=== PATIENT | female | born 1980 | race Two or more races ===

== ENCOUNTER 2018-02-13 19:28 | Emergency (ER) | payer OTHER ==
[2018-02-13] MEDS ORDERED: ACETAMINOPHEN 325 MG TABLET (FP) PO ONE (19:48)
--- NOTE | 2018-02-13 19:48 | PDOC ---
Rapid Medical Evaluation Time Seen by Provider: 02/13/18 19:44 Medical Evaluation: 02/13/18 19:45 I have performed a brief in-person evaluation of this patient. The patient presents with a chief complaint of: right ankle pain s/p inversion injury. Pertinent physical exam findings: [place] ankle (-) I have ordered the following: urine The patient will proceed to the ED for further evaluation. Discharge Disposition - Diagnosis Ankle pain, right - Referrals - Patient Instructions - Post Discharge Activity
[2018-02-13 19:51] VITALS: BP 119/86; PULSE 75; TEMP 98.2; BMI 25.0
[2018-02-13] MEDS ORDERED: ACETAMINOPHEN 325 MG TABLET (FP) ONE (20:20)
--- NOTE | 2018-02-13 20:25 | PDOC ---
History of Present Illness - General Chief Complaint: Injury Stated Complaint: RT LEG INJURY Time Seen by Provider: 02/13/18 19:44 - History of Present Illness Initial Comments: 02/13/18 20:22 37-year-old female without comorbidities presents for evaluation of right ankle pain. She states she was walking down steps yesterday and twisted her ankle. She describes an inversion injury. She points to the lateral aspect of the right ankle as her area of the discomfort Past History - Past Medical History Allergies/Adverse Reactions: Allergies Allergy/AdvReac Type Severity Reaction Status Date / Time No Known Allergies Allergy Verified 02/13/18 19:51 Home Medications: Ambulatory Orders Ibuprofen 200 mg PO ASDIR 02/13/18 - Suicide/Smoking/Psychosocial Hx Smoking History: Never smoked Have you smoked in the past 12 months: No Information on smoking cessation initiated: No Hx Alcohol Use: No Drug/Substance Use Hx: No Review of Systems - Review of Systems Musculoskeletal: Yes: Joint Pain *Physical Exam - Vital Signs Last Vital Signs Temp Pulse Resp BP Pulse Ox 98.2 F 75 16 119/86 100 02/13/18 19:46 02/13/18 19:46 02/13/18 19:46 02/13/18 19:46 02/13/18 19:46 - Physical Exam Comments: 02/13/18 20:23 Right ankle skin color and temperature are normal. Range of motion is full and nonpainful. There is no pain about the knee which has full range of motion without pain proximal fibula or along its distal course no pain or tenderness about the medial lateral malleolus fifth metatarsal or navicular. There is minimal discomfort at the ATFL. No evidence of instability no gross sensorimotor deficits. She is neurovascularly intact. ED Treatment Course - ADDITIONAL ORDERS Additional order review: Laboratory Results 02/13/18 20:00 Urine HCG, Qual Negative *DC/Admit/Observation/Transfer Diagnosis at time of Disposition: Ankle pain, right, Right ankle sprain - Discharge Dispostion Disposition: HOME Condition at time of disposition: Stable Decision to Admit order: No - Referrals Referrals: Victor Manuel Cruz MD [Staff Physician] - - Patient Instructions Printed Discharge Instructions: Ankle Sprain, DI for Ankle Sprain Additional Instructions: Return to the emergency room should symptoms worsen or go unresolved. He can continue with Tylenol and Motrin for pain as directed. Keep ankle elevated. Follow-up with orthopedic surgery in 2-3 days for further evaluation and treatment options. You may weight-bear as tolerated with use of crutches and the Aircast. - Post Discharge Activity
== END 2018-02-13 20:33 | disposition home or self-care (01) ==
LOC: JERFT 19:28
DX: M25.571 Pain in right ankle and joints of right foot (principal); S93.401A Sprain of unspecified ligament of right ankle, initial encounter; X58.XXXA Exposure to other specified factors, initial encounter; Y93.89 Activity, other specified; Y92.89 Other specified places as the place of occurrence of the external cause
CPT/HCPCS: 84703; 99281-25

== ENCOUNTER 2019-12-09 17:00 | Inpatient (IN) | payer OTHER ==
[~2019-12-09 17:00] MED LIST: ceFAZolin SODIUM 1 GM VIAL IVPB ONE
[2019-12-09 18:13] VITALS: BMI 30.2
[2019-12-09 18:23] LABS: BASO % 0.5 % (0-2.0); EOS % 2.3 % (0-4.5); HEMATOCRIT 33.1 % (32.4-45.2); HEMOGLOBIN 10.8 GM/dL (10.7-15.3); LYMPH % 19.6 % (8-40); MCH 27.7 pg (25.7-33.7); MCHC 32.7 g/dl (32.0-36.0); MEAN CELL VOLUME 84.5 fl (80-96); MEAN PLT VOLUME 9.1 fl (7.5-11.1); MONO % 8.7 % (3.8-10.2); NEUT % 68.9 % (42.8-82.8); PLATELET COUNT 176 K/MM3 (134-434); RBC 3.92 M/mm3 (3.60-5.2); RDW 15.8 % (11.6-15.6); WHITE BLOOD COUNT 8.2 K/mm3 (4.0-10.0)
[2019-12-09 18:29] LABS: INR 0.97 (0.83-1.09); PROTHROMBIN TIME (PATIENT) 11.4 SEC (9.7-13.0)
[2019-12-09 18:31] LABS: ACTIVATED PTT 27.1 SECONDS (25.2-36.5)
[2019-12-09 18:45] LABS: BLOOD UREA NITROGEN 9.6 mg/dL (7-18); CALCIUM 8.2 mg/dL (8.5-10.1); CREATININE 0.6 mg/dL (0.55-1.3); POTASSIUM 3.7 mmol/L (3.5-5.1)
--- NOTE | 2019-12-09 18:58 | HP ---
Past Medical History - Primary Care Physician PCP:: Gaudencio Hansen - Admission Chief Complaint: Referred from [facility] with iow MAYA of 3.6 cm History of Present Illness: 39 yo , CHRISTIANE 12/23/19, EGA 38 weeks, was referred with oligohyramnios No bleeding or leaking fluid per vagina Right (dermoid) ovarian cyst of 10 - 12 cm is present. History Source: Patient Limitations to Obtaining History: No Limitations - Past Medical History ...: 5 ...Para: 2 ...Term: 2 ...: 0 ...Spon : 0 ...Induced : 2 ...Living Children: 2 ...Multiple Gestation: 0 ...LMP: 02/15/19 ... Weeks Gestation by Dates: 38.0 ...EDC by Dates: 12/23/19 ...EDC by Sono: 12/23/19 - Past Surgical History Past Surgical History: Yes: Hx Myomectomy: No Hx Transabdominal Cerclage: No - Smoking History Smoking history: Never smoked Have you smoked in the past 12 months: No - Alcohol/Substance Use Hx Alcohol Use: No - Social History Usual Living Arrangement: Yes: With Significant Other Do you think of yourself as: Straight/Heterosexual History of Recent Travel: No Home Medications - Allergies Allergies/Adverse Reactions: Allergies Allergy/AdvReac Type Severity Reaction Status Date / Time No Known Allergies Allergy Verified 12/09/19 17:56 - Home Medications Home Medications: Ambulatory Orders Pnv No.95/Ferrous Fum/Folic AC [ Formula] 1 each PO DAILY 12/09/19 Family Medical History Family History: Denies Review of Systems - Review of Systems Constitutional: reports: No Symptoms Eyes: reports: No Symptoms HENT: reports: No Symptoms Neck: reports: No Symptoms Cardiovascular: reports: No Symptoms Respiratory: reports: No Symptoms Gastrointestinal: reports: No Symptoms Genitourinary: reports: No Symptoms Breasts: reports: No Symptoms Reported Musculoskeletal: reports: No Symptoms Integumentary: reports: No Symptoms Neurological: reports: No Symptoms Endocrine: reports: No Symptoms Hematology/Lymphatic: reports: No Symptoms Psychiatric: reports: No Symptoms Physical Exam - Maternity Vital Signs: Vital Signs Temperature 98.3 F 12/09/19 17:59 Pulse Rate 66 12/09/19 17:59 Respiratory Rate 18 12/09/19 17:59 Blood Pressure 104/69 12/09/19 17:59 O2 Sat by Pulse Oximetry (%) 100 12/09/19 17:30 Constitutional: Yes: Well Nourished Eyes: Yes: WNL HENT: Yes: WNL Neck: Yes: WNL Cardiovascular: Yes: WNL - Abdominal Exam/OB Number of Fetuses: Single Presentation: Breech Contractions: No Monitor Mode: External Heart Rate Location: [facility] Category: I Accelerations: Uniform Decelerations: None - Vaginal Exam/OB Vaginal Bleeding: No Speculum Exam: No Dilatation (cm): 0 Effacement (%): 0 Amniotic Membrane Status: Intact Presentation: Gal[place] Breech Station: -3 - Physical Exam Musculoskeletal: Yes: WNL Extremities: Yes: WNL Edema: No ...Motor Strength: WNL Psychiatric: Yes: WNL - Labs Lab Results: CBC, BMP 12/09/19 18:00 Hemorrhage Risk Assessment - Risk Factors Medium Risk Factors: Yes: None High Risk Factors: Yes: None Risk Score: 1 Risk Level: Medium Risk Problem List - Problems (1) 38 weeks gestation of Code(s): Z3A.38 - 38 WEEKS GESTATION OF (2) Oligohydramnios in shaw in third trimester Code(s): O41.03X0 - OLIGOHYDRAMNIOS, THIRD TRIMESTER, NOT APPLICABLE OR UNSP (3) Right ovarian cyst Code(s): N83.201 - UNSPECIFIED OVARIAN CYST, RIGHT SIDE Assessment/Plan Early term gestation with severe oligohydramnios, prior delivery and right dermoid cyst Sudhakar repeat delivery and right salpingoophorectomy Patient counseled on above procedures, with complications explained to her. Continue monitoring.
[2019-12-09] MEDS ORDERED: morphine SULFATE/PF 0.5 MG/ML (2cc Syringe - QUVA) ONE (19:47)
[2019-12-09] MEDS ORDERED: OXYTOCIN 20 UNITS in 0.9% NS 20 UNIT/1,000 ML INFUS.BAG IV ONE (20:31)
[2019-12-09] MEDS: CITRIC ACID/SODIUM CITRATE 30 ML UNIT-DOSE CUP PO ONE (21:40)
[2019-12-09] MEDS ORDERED: ePHEDrine SULFATE 50 MG/1 ML AMPULE ONE (22:38)
[2019-12-09] MEDS ORDERED: ceFAZolin SODIUM 1 GM VIAL ONE (22:41)
[2019-12-09] MEDS ORDERED: OXYTOCIN 10 UNITS/ML VIAL ONE (22:51)
[2019-12-09] MEDS ORDERED: MIDAZOLAM HCL 2 MG/2 ML SINGLE DOSE VIAL ONE (23:35)
--- NOTE | 2019-12-10 00:13 | OP ---
Operative Note - Note: Operative Date: 12/09/19 Pre-Operative Diagnosis: Early term gestation with prior delivery and right adnexal mass Operation: Repeay delivery and right salpingoophorectomy. Surgeon: Gaudencio Hansen Flight Crew Ordnanceman: iWlliam Espinoza Anesthesiologist/CODING DIRECTOR: Bobbi Powers Anesthesia: Spinal Estimated Blood Loss (mls): 800 Operative Report Dictated: Yes
[2019-12-10] MEDS ORDERED: METHYLERGONOVINE MALEATE 0.2 MG/1 ML AMP IM PRN (00:15)
[2019-12-10] MEDS ORDERED: SIMETHICONE 80 MG TAB.CHEW (FP) PO PRN (00:15)
[2019-12-10] MEDS ORDERED: DOCUSATE SODIUM 100 MG CAPSULE (FP) PO PRN (00:19)
[2019-12-10] MEDS ORDERED: OXYTOCIN 20 UNITS in 0.9% NS 20 UNIT/1,000 ML INFUS.BAG IV SCH (00:30)
[2019-12-10] MEDS ORDERED: ONDANSETRON 4 MG/2 ML VIAL IVPUSH PRN (01:00)
[2019-12-10 01:01] LABS: CORD HCO3 20.8 mmHg (20-29); CORD PCO2 59.3 mmHg (30-78); CORD pH 7.163 (7.14-7.44)
[2019-12-10 01:04] LABS: CORD BASE EXCESS -5.3 mmol/L (0-2); CORD HCO3 21.2 mmHg (20-29); CORD PCO2 44.7 mmHg (30-78); CORD pH 7.294 (7.14-7.44)
[2019-12-10] MEDS: KETOROLAC TROMETHAMINE 30 MG/1 ML VIAL IVPB PRN ×3 (03:04→21:35)
[2019-12-10] MEDS: CITRIC ACID/SODIUM CITRATE 30 ML UNIT-DOSE CUP PO ONE (07:44)
[2019-12-10 08:35] LABS: BASO % 0.5 % (0-2.0); EOS % 0.6 % (0-4.5); LYMPH % 10.8 % (8-40); MCH 27.1 pg (25.7-33.7); MCHC 32.3 g/dl (32.0-36.0); MEAN PLT VOLUME 9.4 fl (7.5-11.1); MONO % 5.3 % (3.8-10.2); NEUT % 82.8 % (42.8-82.8); PLATELET COUNT 184 K/MM3 (134-434); RBC 3.69 M/mm3 (3.60-5.2); RDW 15.6 % (11.6-15.6); WHITE BLOOD COUNT 12.7 K/mm3 (4.0-10.0)
[2019-12-10 08:58] LABS: BILIRUBIN,TOTAL 0.4 mg/dL (0.2-1); BLOOD UREA NITROGEN 7.3 mg/dL (7-18); CALCIUM 8.1 mg/dL (8.5-10.1); CREATININE 0.6 mg/dL (0.55-1.3); POTASSIUM 4.1 mmol/L (3.5-5.1); TOT PROT 5.1 g/dl (6.4-8.2)
[2019-12-10] MEDS: CEFAZOLIN 1 GM/D5W 1 GM/50 ML BAG IVPB SCH ×2 (09:30→17:42)
--- NOTE | 2019-12-10 10:38 | PN ---
Progress Note (short form) - Note Progress Note: Post op day#1.S/P C Section with right salpingectomy under spinal anesthesia with Duramorph uneventful.Patient stable and c/o little pain for which she is on medication.No any anesthesia related problem.Patient Dc from the anesthesia care.
--- NOTE | 2019-12-10 14:16 | OP ---
DATE OF OPERATION: DATE OF DICTATION: 12/10/2019 PREOPERATIVE DIAGNOSIS: Early term gestation with prior delivery and right adnexal mass. POSTOPERATIVE DIAGNOSIS: Early term gestation with prior delivery and right adnexal mass. OPERATION: 1. Repeat delivery. 2. Right salpingo-oophorectomy. SURGEON: Gaudencio Quick MD REGIONAL OPERATIONS MANAGER: AUGUSTA Villavicencio and Tommy Harmon MD ANESTHESIA: Spinal by Shvehorace Powers, REF-DO ESTIMATED BLOOD LOSS: 800 mL FLUIDS: About 2500 mL crystalloids. URINE OUTPUT: 400 mL of clear urine after the procedure POSTOPERATIVE CONDITION: Satisfactory. FINDINGS: Female infant in cephalic presentation. scores 8 at one minute; 9 at one minute. Weight 3080 g. Neonatology was present at delivery. There was normal uterus, tubes, normal left ovary, but the right ovary had a dermoid cyst of about 10 to 12 cm. OPERATIVE PROCEDURE: Patient admitted to operating room. Anesthesia placed without difficulty. Patient prepped and draped in normal sterile fashion in dorsal supine position with a leftward tilt. A Pfannenstiel incision made and carried down to layer of fascia. Fascia nicked in the midline and fascia extended laterally in both directions. Christina clamp placed on the lower aspect of the fascia and the fascia from the underlying muscle. A similar procedure carried out in the upper fascia which was also from the underlying muscle. The peritoneum was then identified, entered sharply with Metzenbaum scissors and the vesicouterine peritoneum identified. Incision made in the uterus and baby delivered by the head atraumatically and handed over to the impregnator operator. Prior to the delivery cord was clamped and cut. Cord gases and cord blood obtained. Uterus was exteriorized, cleared of all clots and debris and then sutured in 2 layers. Good hemostasis achieved. Attention was then turned to the right ovary and the salpinx which had developed into a cyst, namely a dermoid cyst and a right salpingo-oophorectomy performed and hemostasis achieved. LigaSure was used in the salpingo-oophorectomy. Abdomen was then cleaned of all clots and debris and the paracolic gutters also all cleaned. Uterus was then placed in the abdomen and abdomen then closed in layers with 2-0 Vicryl to the peritoneum and the muscle layer, 1 Vicryl for the fascia, 2-0 plain catgut for the subcutaneous layer and the skin closed with mey. Patient tolerated procedure well. Sponge, lap, all instruments used count correct x2. The mass removed was then sent to Pathology for examination and patient was then admitted to the recovery room in stable condition. GAUDENCIO QUICK MD [id number]
[2019-12-10] MEDS ORDERED: oxyCODONE HCL 5 MG TABLET PO PRN (17:00)
--- NOTE | 2019-12-10 20:17 | PN ---
Progress Note (short form) - Note Progress Note: Patient without complaints Tolerating clear liquids No flatus VS- wnl Heart and lungs wnl Abdomen soft, improving bowel sounds Dressing clean and dry Normal lochial flow No calf tenderness A/P- POD #1 ambulate Continue same management
[2019-12-11] MEDS ORDERED: BISACODYL 10 MG SUPP.RECT RC PRN (00:15)
[2019-12-11] MEDS: CEFAZOLIN 1 GM/D5W 1 GM/50 ML BAG IVPB SCH ×3 (01:56→18:21)
[2019-12-11 08:27] LABS: BASO % 0.5 % (0-2.0); EOS % 0.7 % (0-4.5); HEMOGLOBIN 9.4 GM/dL (10.7-15.3); LYMPH % 11.8 % (8-40); MCH 27.2 pg (25.7-33.7); MCHC 32.5 g/dl (32.0-36.0); MEAN CELL VOLUME 83.7 fl (80-96); MEAN PLT VOLUME 9.1 fl (7.5-11.1); MONO % 5.6 % (3.8-10.2); NEUT % 81.4 % (42.8-82.8); PLATELET COUNT 217 K/MM3 (134-434); RBC 3.46 M/mm3 (3.60-5.2); RDW 15.9 % (11.6-15.6); WHITE BLOOD COUNT 11.8 K/mm3 (4.0-10.0)
[2019-12-11] MEDS: ACETAMINOPHEN 325 MG TABLET (FP) PO PRN ×2 (11:26→20:42)
[2019-12-11] MEDS: IBUPROFEN 600 MG TABLET (FP) PO PRN (11:28)
[2019-12-11] MEDS ORDERED: PRENATAL VITAMINS W/ FOLIC ACID TABLET (FP) PO SCH (19:00)
--- NOTE | 2019-12-11 19:05 | PN ---
Post Progress Note Post Day: 2 Type of Delivery: Repeat C/S Vital Signs: Vital Signs Temperature 98.5 F 12/11/19 10:00 Pulse Rate 83 12/11/19 10:00 Respiratory Rate 83 H 12/11/19 10:00 Blood Pressure 102/70 12/11/19 10:00 O2 Sat by Pulse Oximetry (%) 97 12/11/19 10:00 Breast Exam: Yes: Soft Uterus: Yes: Fundus Firm, Fundus below umbilicus, Non-tender Incision: Yes: Dressing dry and intact, Hitesh intact Abdomen/GI: Yes: Abdomen soft, Tolerating PO Lochia: Yes: Rubra Lochia, amount: Small Extremities: Yes: Calves non-tender Activity: Ambulating - Labs Labs: CBC WBC 11.8 K/mm3 (4.0-10.0) H 12/11/19 07:40 RBC 3.46 M/mm3 (3.60-5.2) L 12/11/19 07:40 Hgb 9.4 GM/dL (10.7-15.3) L 12/11/19 07:40 Hct 29.0 % (32.4-45.2) L 12/11/19 07:40 MCV 83.7 fl (80-96) 12/11/19 07:40 MCH 27.2 pg (25.7-33.7) 12/11/19 07:40 MCHC 32.5 g/dl (32.0-36.0) 12/11/19 07:40 RDW 15.9 % (11.6-15.6) H 12/11/19 07:40 Plt Count 217 K/MM3 (134-434) 12/11/19 07:40 MPV 9.1 fl (7.5-11.1) 12/11/19 07:40 Absolute Neuts (auto) 9.6 K/mm3 (1.5-8.0) H 12/11/19 07:40 Neutrophils % 81.4 % (42.8-82.8) 12/11/19 07:40 Lymphocytes % 11.8 % (8-40) 12/11/19 07:40 Monocytes % 5.6 % (3.8-10.2) 12/11/19 07:40 Eosinophils % 0.7 % (0-4.5) 12/11/19 07:40 Basophils % 0.5 % (0-2.0) 12/11/19 07:40 Nucleated RBC % 0 % (0-0) 12/11/19 07:40 Problem List - Problems (1) 38 weeks gestation of Code(s): Z3A.38 - 38 WEEKS GESTATION OF (2) Oligohydramnios in shaw in third trimester Code(s): O41.03X0 - OLIGOHYDRAMNIOS, THIRD TRIMESTER, NOT APPLICABLE OR UNSP (3) Right ovarian cyst Code(s): N83.201 - UNSPECIFIED OVARIAN CYST, RIGHT SIDE Assessment/Plan S/P delivery and right salpingoophorectomy, pod # 2, passed flatus Encourage incentive spirometer and ambulation Continue management
[2019-12-12] MEDS: CEFAZOLIN 1 GM/D5W 1 GM/50 ML BAG IVPB SCH ×2 (02:22→11:31)
[2019-12-12 10:32] VITALS: BP 115/74; PULSE 74; TEMP 98.1
[2019-12-12] MEDS: IBUPROFEN 600 MG TABLET (FP) PO PRN (14:12)
--- NOTE | 2019-12-12 18:33 | PN ---
Post Progress Note Post Day: 3 Type of Delivery: Repeat C/S Vital Signs: Vital Signs Temperature 98.1 F 12/12/19 08:30 Pulse Rate 74 12/12/19 08:30 Respiratory Rate 20 12/12/19 08:30 Blood Pressure 115/74 12/12/19 08:30 O2 Sat by Pulse Oximetry (%) 99 12/12/19 08:30 Breast Exam: Yes: Soft Uterus: Yes: Fundus Firm, Fundus below umbilicus, Non-tender Incision: Yes: Dressing dry and intact, [place] intact Abdomen/GI: Yes: Abdomen soft, Tolerating PO Lochia: Yes: Rubra Lochia, amount: Small Extremities: Yes: Calves non-tender Activity: Ambulating - Labs Labs: CBC WBC 11.8 K/mm3 (4.0-10.0) H 12/11/19 07:40 RBC 3.46 M/mm3 (3.60-5.2) L 12/11/19 07:40 Hgb 9.4 GM/dL (10.7-15.3) L 12/11/19 07:40 Hct 29.0 % (32.4-45.2) L 12/11/19 07:40 MCV 83.7 fl (80-96) 12/11/19 07:40 MCH 27.2 pg (25.7-33.7) 12/11/19 07:40 MCHC 32.5 g/dl (32.0-36.0) 12/11/19 07:40 RDW 15.9 % (11.6-15.6) H 12/11/19 07:40 Plt Count 217 K/MM3 (134-434) 12/11/19 07:40 MPV 9.1 fl (7.5-11.1) 12/11/19 07:40 Absolute Neuts (auto) 9.6 K/mm3 (1.5-8.0) H 12/11/19 07:40 Neutrophils % 81.4 % (42.8-82.8) 12/11/19 07:40 Lymphocytes % 11.8 % (8-40) 12/11/19 07:40 Monocytes % 5.6 % (3.8-10.2) 12/11/19 07:40 Eosinophils % 0.7 % (0-4.5) 12/11/19 07:40 Basophils % 0.5 % (0-2.0) 12/11/19 07:40 Nucleated RBC % 0 % (0-0) 12/11/19 07:40 Problem List - Problems (1) 38 weeks gestation of Code(s): Z3A.38 - 38 WEEKS GESTATION OF (2) Oligohydramnios in shaw in third trimester Code(s): O41.03X0 - OLIGOHYDRAMNIOS, THIRD TRIMESTER, NOT APPLICABLE OR UNSP (3) Right ovarian cyst Code(s): N83.201 - UNSPECIFIED OVARIAN CYST, RIGHT SIDE Assessment/Plan S/P delivery and right saplingoophorectomy, pod # 3, stable Discharge home today Follow up on 12/16/19.
--- NOTE | 2019-12-12 18:38 | DS ---
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 Vital Signs: Vital Signs Temperature 98.1 F 12/12/19 08:30 Pulse Rate 74 12/12/19 08:30 Respiratory Rate 20 12/12/19 08:30 Blood Pressure 115/74 12/12/19 08:30 O2 Sat by Pulse Oximetry (%) 99 12/12/19 08:30 Constitutional: Yes: Well Nourished Eyes: Yes: WNL HENT: Yes: WNL Neck: Yes: WNL Cardiovascular: Yes: WNL Respiratory: Yes: WNL Gastrointestinal: Yes: WNL Renal/: Yes: WNL Pelvis: Yes: WNL External Genitalia: Yes: Normal Vaginal Exam: Yes: Normal Cervix: Yes: Normal Uterus: Yes: Normal Adnexa: Normal: Left ....Post : Yes: Uterus firm, Uterus non-tender, Slight lochia rubra Breast(s): Yes: WNL Musculoskeletal: Yes: WNL Extremities: Yes: WNL Edema: No Integumentary: Yes: WNL Wound/Incision: Yes: Clean/Dry, Well Approximated, Hitesh Intact Neurological: Yes: WNL ...Motor Strength: WNL Psychiatric: Yes: WNL Labs: CBC, BMP 12/11/19 07:40 12/10/19 07:37 Delivery - Delivery Section: Repeat Type of Anesthesia: Spinal, None Episiotomy/Laceration: None EBL (cc): 800 Delivery, Single - Stages of Labor Date of Delivery: 12/09/19 Time of Delivery: 22:50 Time Placenta Delivered: 22:52 Placenta: Yes: Expressed, Normal Configuration - Condition of Manager Program/Sr. Vendor Management Associate Present: Yes Name: Ivonne Dewitt Gender: Female Total Hours ROM (Hrs/Mins): 1 min - 1 Minute Total Score: 8 5 Minutes Total Score: 9 - Feeding Plan Initial Plan: Exclusive throughout hospitalization Discharge Summary Problems reviewed: Yes Reason For Visit: NST ADMIT C SECTION Current Active Problems 38 weeks gestation of (Acute) Oligohydramnios in shaw in third trimester (Acute) Right ovarian cyst (Acute) Condition: Stable - Instructions Disposition: HOME - Home Medications Comprehensive Discharge Medication List: Ambulatory Orders Pnv No.95/Ferrous Fum/Folic AC [ Formula] 1 each PO DAILY 12/09/19 Acetaminophen 500 mg PO QID #30 tablet 12/12/19 Docusate Sodium [Colace] 100 mg PO DAILY #10 capsule 12/12/19 Ibuprofen 600 mg PO Q6H PRN #30 tablet 12/12/19 Vit No.124/Iron/Folic [ Vitamin Tablet] 1 each PO DAILY #30 tablet 12/12/19
--- NOTE | 2019-12-15 11:44 | PATH ---
Surgical Pathology Report Patient Name: ISIDRO PHELPS [facility]. Rec. #: [id number] /Age/Gender: 1980 (Age: 39) / F Account: [id number] Location: [facility] OBS/STAFF PHYSICIAN Taken: 12/09/2019 Received: 12/10/2019 Reported: 12/15/2019 Physicians: Gaudencio Hansen Specimen(s) Received A: PLACENTA B: FIBROID C: RIGHT OVARIAN MASS, TUBE AND OVARY Clinical History Right ovarian mass Final Diagnosis A. PLACENTA: THIRD TRIMESTER PLACENTA WITH SUBCHORIONIC FIBRIN DEPOSITION. TWO VESSEL CORD (SINGLEUMBILICALARTERY). MEMBRANES WITH NO DIAGNOSTIC ABNORMALITIES. B. FIBROID, EXCISION: LEIOMYOMA. C. RIGHT OVARIAN MASS, TUBE AND OVARY, RIGHT SALPINGO-OOPHORECTOMY: OVARIAN TISSUE WITH MATURE CYSTIC TERATOMA. PORTION OF FALLOPIAN TUBE WITH NO SIGNIFICANT PATHOLOGIC CHANGE. Electronically Signed Yoon Rutherford M.D. Gross Description A. The specimen is received fresh labeled placenta and is a 527 gram, 17.5 x 13.0 x 3.8 cm. placenta with attached membranes and umbilical cord. The attached membranes are sandra, translucent with focal opacities and insert marginally. The umbilical cord measures 21 cm. in length and averages 1 cm. in diameter. The cord inserts eccentrically, 4 cm. to the nearest margin. No true knots or strictures are identified. Cut surface of the umbilical cord reveals only 2 vessels. The surface is pavon blue with moderate fibrin deposition and appropriate caliber vessels. The maternal surface is red-brown with focal defects. Sectioning reveals red-brown, spongy parenchyma. No lesions are identified. Gripper Installer sections are submitted in three cassettes as follows: 1- membrane rolls and umbilical cord; 2-3- full thickness sections of placenta. B. Received in formalin labeled "fibroid," is a 2 g, 1.8 x 1.4 x 0.9 cm sandra, firm, rubbery nodule, consistent with a fibroid. Exiting reveals sandra, rubbery pink most whorled architecture. No areas of hemorrhage or necrosis are identified. Gripper Installer sections are submitted in one cassette. C. Received in formalin labeled "right ovarian mass, tube, ovary," is a 9.5 x 6.5 x 4.7 cm sandra, firm mass. There is a 5.5 cm in length fimbriated fallopian tube attached to the mass. The outer surface of the fallopian tube is sandra-brown and smooth. Sectioning reveals an unremarkable fallopian tube lumen. The outer surface of the mass is sandra, smooth and intact. Sectioning reveals multiloculated cystic architecture with abundant dense yellow sebaceous material and hair within the lumen. Sectioning reveals focally calcified areas. The cyst wall averages 0.1 cm in thickness. Gripper Installer sections are submitted in 8 cassettes as follows: 1-fallopian tube fimbria; 2-cross sections of fallopian tube; 1-2-ljhfaoloqrvmqv cyst wall (cassette #8 in decalcification). [facility]
== END 2019-12-12 20:00 | disposition home or self-care (01) | DRG 540 ==
LOC: JLDR 17:00 → J3W 12-10 01:54
PROVIDERS: ADMIT Obstetrics & Gynecology; ATTEND Obstetrics & Gynecology
PROC: 0UB50ZZ Excision of Right Fallopian Tube, Open Approach (ICD-10-PCS; principal; 2019-12-10)
PROC: 10D00Z1 Extraction of Products of Conception, Low, Open Approach (ICD-10-PCS; 2019-12-10)
PROC: 0UB00ZZ Excision of Right Ovary, Open Approach (ICD-10-PCS; 2019-12-10)
DX: O82 Encounter for cesarean delivery without indication (principal); O41.03X0 Oligohydramnios, third trimester, not applicable or unspecified; O34.219 Maternal care for unspecified type scar from previous cesarean delivery; O99.89 Other specified diseases and conditions complicating pregnancy, childbirth and the puerperium; N83.291 Other ovarian cyst, right side; Z3A.38 38 weeks gestation of pregnancy; Z37.0 Single live birth; Z30.2 Encounter for sterilization
CPT/HCPCS: 36415; 36600; 80048; 80053; 82803; 85025; 85461; 85610; 85730; 86780; 86850; 86870; 86900; 86901; 86902; 86922; 86999; 88305-TC; 88307-TC; 94010; U0003